=== PATIENT | male | born 1995 | race Caucasian/White ===

== ENCOUNTER 2018-09-19 18:04 | Emergency (ER) | payer OTHER ==
[~2018-09-19] VITALS: Ht 172.7 cm; Wt 69.0 kg
[2018-09-19] MEDS ORDERED: ACETAMINOPHEN 325MG TABLET PO STA (18:32)
[2018-09-19] MEDS ORDERED: LIDOCAINE HCL/PF 1% 10 MG/ML 5ML VIAL IJ ONE (18:45)
[2018-09-19] MEDS ORDERED: TETANUS, DIPHTHERIA, PERTUSSIS VAC/PF 0.5ML (>7YR OLD) IM ONE (18:45)
[2018-09-19] MEDS ORDERED: BACITRACIN ZINC OINT UDPKT TOP ONE (18:45)
[2018-09-19 21:31] VITALS: BP 131/92
== END 2018-09-19 21:32 | disposition home or self-care (01) ==
LOC: ER 18:04
DX: S01.81XA Laceration without foreign body of other part of head, initial encounter (principal); S83.92XA Sprain of unspecified site of left knee, initial encounter; F12.10 Cannabis abuse, uncomplicated; F17.290 Nicotine dependence, other tobacco product, uncomplicated; W22.8XXA Striking against or struck by other objects, initial encounter; Y93.89 Activity, other specified; Y92.89 Other specified places as the place of occurrence of the external cause; Y99.8 Other external cause status
CPT/HCPCS: 12013; 70450; 71045; 73562; 90471; 90715; 99284; 99406; J3490